=== PATIENT | female | born 1990 | race Caucasian/White ===

== ENCOUNTER 2016-10-18 05:11 | Emergency (ER) | payer SELFPAY ==
[~2016-10-18] VITALS: Ht 154.9 cm; Wt 45.4 kg
[2016-10-18 05:11] VITALS: BP 113/84; PULSE 85; RESP 16; TEMP 98.7; O2SAT 98
--- NOTE | 2016-10-18 05:11 | NUR ---
BIB Officer in custody for medical clearance. Patient to ER bed 3 to gown for evaluation. Side rails up.
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
--- NOTE | 2016-10-18 05:27 | NUR ---
ER MD Blanco at bedside for evaluation
--- NOTE | 2016-10-18 05:43 | NUR ---
Radiology at bedside with portable for chest Xray
[2016-10-18] MEDS ORDERED: DIPH-TET-PERTUS Vaccine 0.5 ML VIAL (ADACEL) I.M. ONE (06:15)
[2016-10-18] MEDS ORDERED: BACITRACIN 1 GM OINT TP ONE (06:15)
--- NOTE | 2016-10-18 06:30 | NUR ---
Patient in custody of [facility], given written and verbal discharge instructions and verbalizes understanding. ER MD Blanco discussed with patient the results and treatment provided. Patient in stable condition. ID arm band removed. Patient educated on pain management and to follow up with PMD. Pain Scale 0/10. Opportunity for questions provided and answered.
== END 2016-10-18 06:30 ==
LOC: SED 05:11
DX: S10.91XA Abrasion of unspecified part of neck, initial encounter (principal); S20.312A Abrasion of left front wall of thorax, initial encounter; R03.0 Elevated blood-pressure reading, without diagnosis of hypertension; V49.9XXA Car occupant (driver) (passenger) injured in unspecified traffic accident, initial encounter; W22.11XA Striking against or struck by driver side automobile airbag, initial encounter; Y93.89 Activity, other specified; Y99.8 Other external cause status; Y92.89 Other specified places as the place of occurrence of the external cause
CPT/HCPCS: 71010; 90715; 99283